=== PATIENT | female | born 1960 | race Caucasian/White ===

== ENCOUNTER 2016-06-24 10:58 | Day surgery (SDC) | payer OTHER ==
[~2016-06-24] VITALS: Ht 170.2 cm; Wt 73.5 kg
[~2016-06-24 10:58] MED LIST: ANTI-DIARRHEA2 MG PO; CIPRO500 MG PO; FLAGYL500 MG PO; GRALISE300 MG PO; HYDROCODON-ACE1 EAC7 PO; LISINOPRIL20 MG PO; MOTRIN800 MG PO; NAPROXEN500 MG PO; NEURONTIN300 MG PO; ROBAXIN750 MG PO; SKELAXIN400 M1 PO; VICODIN ES 7.51 EAC1 PO
== END 2016-06-24 13:51 | disposition home or self-care (01) ==
LOC: PAIN 10:58
PROC: 3E0S33Z Introduction of Anti-inflammatory into Epidural Space, Percutaneous Approach (ICD-10-PCS; principal; 2016-06-24)
DX: M54.16 Radiculopathy, lumbar region (principal); F41.9 Anxiety disorder, unspecified; I10 Essential (primary) hypertension; M19.90 Unspecified osteoarthritis, unspecified site; Z88.8 Allergy status to other drugs, medicaments and biological substances; Z87.891 Personal history of nicotine dependence
CPT/HCPCS: J1030; J1100; J2250; J2405; J3010

== ENCOUNTER 2016-10-09 08:47 | Day surgery (SDC) | payer OTHER ==
[~2016-10-09] VITALS: Ht 170.2 cm; Wt 73.5 kg
[~2016-10-09 08:47] MED LIST changes: +NEURONTIN100 MG PO
== END 2016-10-09 10:50 | disposition home or self-care (01) ==
LOC: PAIN 08:47 → SDC 09:30 → PAIN 10:50
DX: M47.26 Other spondylosis with radiculopathy, lumbar region (principal); F41.9 Anxiety disorder, unspecified; M53.3 Sacrococcygeal disorders, not elsewhere classified; Z87.891 Personal history of nicotine dependence; M19.90 Unspecified osteoarthritis, unspecified site; I10 Essential (primary) hypertension; Z88.8 Allergy status to other drugs, medicaments and biological substances
CPT/HCPCS: J1030; J2250; J2405; J3010; S0020

== ENCOUNTER 2017-08-17 17:02 | Emergency (ER) | payer OTHER ==
[~2017-08-17] VITALS: Ht 170.2 cm; Wt 74.8 kg
[2017-08-17 18:27] LABS: HEMATOCRIT 39.4 % (36.0-46.0); HEMOGLOBIN 13.6 G/DL (11.9-15.5); MCH 29.5 PG (29.0-34.0); MCHC 34.5 G/DL (30.0-36.0); MCV 85.5 FL (83-99); PLATELET COUNT 228 K/uL (156-360); RBC DIS.WIDTH-CV 13.2 % (11.8-14.6); RBC DIS.WIDTH-SD 41.1 % (39-53); RED BLOOD COUNT 4.61 M/uL (3.80-5.20); WHITE BLOOD COUNT 16.7 K/uL (4.1-10.2)
[2017-08-17 18:37] LABS: CHLORIDE 103 mEq/L (99-109); POTASSIUM 3.1 mEq/L (3.7-5.4); SODIUM 140 mEq/L (136-147)
[2017-08-17 18:38] LABS: GLUCOSE 103 mg/dL (70-99)
[2017-08-17 18:40] LABS: APPEARANCE CLEAR ((CLEAR)); BILIRUBIN NEGATIVE; BLOOD NEGATIVE; COLOR YELLOW ((YELLOW)); GLUCOSE (STRIP) NEGATIVE; KETONES NEGATIVE; LEUKOCYTES SMALL; NITRITE NEGATIVE; PROTEIN (STRIP) NEGATIVE; SPECIFIC GRAVITY 1.018 (1.000-1.030); UROBILINOGEN 0.2 MG/DL (0.2-1.0)
[2017-08-17 18:42] LABS: CREATININE 0.7 mg/dL (0.6-1.3); GFR ESTIMATE (CALCULATED) > 59 mL/min/
[2017-08-17 18:43] LABS: UREA NITROGEN (BUN) 13 mg/dL (9-23)
[2017-08-17 18:44] LABS: BACTERIA NONE SEEN /HPF; EPITHELIAL CELLS RARE /HPF; MUCUS TRACE /LPF; RED BLOOD CELLS 0-5 /HPF (0-5); UCUL ADDED? YES; WHITE BLOOD CELLS 15-20 /HPF (0-5)
[2017-08-17 18:50] LABS: QUANTITATIVE HCG < 4.0 MIU/ML
[2017-08-17] MEDS ORDERED: ZOFRAN4 MG PO (20:26)
[2017-08-17 20:36] VITALS: BP 141/79
== END 2017-08-17 20:37 | disposition home or self-care (01) ==
LOC: EME 17:02
PROVIDERS: Nurse Practitioner Family
DX: R10.31 Right lower quadrant pain (principal); E78.5 Hyperlipidemia, unspecified; G89.29 Other chronic pain; Z87.891 Personal history of nicotine dependence
CPT/HCPCS: 74177; 80048; 81003; 84702; 85027; 87077; 87086; 99281; 99284; J7030